=== PATIENT | male | born 1995 | race Caucasian/White ===

== ENCOUNTER 2018-05-23 18:28 | Emergency (ER) | payer OTHER ==
--- NOTE | 2018-05-23 19:48 | ED ---
HPI Chest Pain - HPI Summary HPI Summary: This patient is a 22 year old M presenting to ED with a chief complaint of left upper sided CP since 2 days ago. He has hx of mitral valve prolapse but he reports that recently the pain has been lasting longer than usual. The CC is described as intermittent sharp CP lasting about 0.5-1 hour. The patient rates the pain 2/10 in severity. Symptoms aggravated by deep breaths and exercise including biking and some weight lifting. Symptoms alleviated by nothing. Patient reports light-headedness. Patient denies SOB, abdominal pain, neck pain , and difficulty walking. - History of Current Complaint Chief Complaint: EDChestPainROMI Time Seen by Provider: 05/23/18 19:34 Hx Obtained From: Patient Onset/Duration: Started Days Ago - 2 days ago, Still Present Timing: Intermittent, Lasting Hours - 0.5-1 hour Current Severity: None Pain Intensity: 2 Pain Scale Used: 0-10 Numeric Chest Pain Location: Discrete at: - left upper sided Chest Pain Radiates: No Character: Sharp/Stabbing Aggravating Factor(s): Exertion - exercise including biking and some weight lifting, Deep Breaths Alleviating Factor(s): Nothing Associated Signs and Symptoms: Positive: Chest Pain, Lightheadedness, Other:. Negative: Shortness of Breath - Patient denies abdominal pain, neck pain, and difficulty walking. - Allergy/Home Medications Allergies/Adverse Reactions: Allergies Allergy/AdvReac Type Severity Reaction Status Date / Time No Known Allergies Allergy Verified 05/23/18 18:58 PMH/Surg Hx/FS Hx/Imm Hx Endocrine/Hematology History: Denies: Hx Diabetes Cardiovascular History: Reports: Other Cardiovascular Problems/Disorders - mitral valve prolapse Infectious Disease History: No Infectious Disease History: Denies: Traveled Outside the [place] in Last 30 Days - Family History Known Family History: Negative: Cardiac Disease, Hypertension, Diabetes - Social History Occupation: Student Alcohol Use: None Hx Substance Use: No Hx Tobacco Use: No Review of Systems Positive: Chest Pain Negative: Shortness Of Breath Negative: Abdominal Pain Positive: Other - denies neck pain and difficulty walking Neurological: Other - light-headedness All Other Systems Reviewed And Are Negative: Yes Physical Exam - Summary Physical Exam Summary: Appearance: Well-appearing, Well-nourished, lying in bed comfortably. Slender, long neck and long fingers, marfanoid habits, but was genetically tested for marfan disease and is negative for the disease. Skin: Warm, dry, no obvious rash Eyes: sclera anicteric, no conjunctival pallor ENT: mucous membranes moist, pharynx appears normal Neck: Supple, nontender Respiratory: Clear to auscultation, no signs of respiratory distress Cardiovascular: Normal S1, S2. No murmurs. Normal distal pulses in tibial and radial bilaterally. Normal chest wall. No pectus deformity. Peripheral pulses are normal. Abdomen: Soft, nontender, normal active bowel sounds present Musculoskeletal: Normal, Strength/ROM Intact Neurological: A&Ox3, awake and alert, mentation is normal, speech is fluent and appropriate Psychiatric: affect is normal, does not appear anxious or depressed Triage Information Reviewed: Yes Vital Signs On Initial Exam: Initial Vitals Temp Pulse Resp BP Pulse Ox 98.5 F 80 16 134/94 97 05/23/18 18:55 05/23/18 18:55 05/23/18 18:55 05/23/18 18:55 05/23/18 18:55 Vital Signs Reviewed: Yes Diagnostics - Vital Signs Vital Signs Temp Pulse Resp BP Pulse Ox 05/23/18 18:55 98.5 F 80 16 134/94 97 - Laboratory Result Diagrams: 05/23/18 20:20 05/23/18 20:20 Lab Statement: Any lab studies that have been ordered have been reviewed, and results considered in the medical decision making process. - Radiology CXR Radiology Interpretation Completed By: ED Physician Summary of Radiographic Findings: No acute processes. Pending radiologist official interpretation. - EKG 1902 Cardiac Rate: NL - 70 BPM - Additional Comments Diagnostic Additional Comments: Subtle ST elevation consistent with pericarditis or early polarization but not a STEMI. Re-Evaluation - Re-Evaluation First Eval Re-Evaluation Time: 23:05 Change: Improved Comment: The patient feels better and he will be discharged. Patient understands and agrees. Chest Pain Course/Dx - Course Assessment/Plan: This patient is a 22 year old M presenting to ED with a chief complaint of left upper sided CP since 2 days ago. He has hx of mitral valve prolapse but he reports that recently the pain has been lasting longer than usual. CXR reveals no acute processes. Pending radiologist official interpretation. The patient feels better in the ED. He will be discharged with dx of CP. Patient understands and agrees. - Chest Pain Differential Diagnosis/HQI/PQRI: Other: - chest pain - Diagnoses Provider Diagnoses: Chest pain Discharge - Sign-Out/Discharge Documenting (check all that apply): Patient Departure - discharge - Discharge Plan Condition: Good Disposition: HOME Prescriptions: Indomethacin CAP* [Indocin CAP*] 25 mg PO TID PRN #20 cap PRN Reason: Pain - Chest Patient Education Materials: Chest Pain (ED) Referrals: [facility] @ [Outside] - 2 Days (if not improving) - Billing Disposition and Condition Condition: GOOD Disposition: Home - Attestation Statements Document Initiated by Scribe: Yes Documenting Scribe: Jamil Gordon Provider For Whom [place] is Documenting (Include Credential): Aubrey Tyler MD Scribe Attestation: Jamil Rodriguez scribed for Aubrey Tyler MD on 05/24/18 at 0643. Scribe Documentation Reviewed: Yes Provider Attestation: The documentation as recorded by the Jamil barr accurately reflects the service I personally performed and the decisions made by Aubrey alas MD Status of Scribe Document: Viewed
[2018-05-23 20:27] LABS: ABS Basophils 0 10^3/ul (0-0.2); ABS Eosinophils 0 10^3/ul (0-0.6); ABS Lymphocytes 2.1 10^3/ul (1.0-4.8); ABS Monocytes 0.6 10^3/ul (0-0.8); ABS Neutrophils 4.6 10^3/ul (1.5-7.7); ABS Nucleated RBC 0 10^3/ul; Eosinophil % 0.5 %; Hematocrit 46 % (42-52); Hemoglobin 15.7 g/dl (14.0-18.0); Lymphocyte % 28.2 %; Mean Corpuscular HGB Conc 34 g/dl (31-36); Mean Corpuscular Hemoglobin 31 pg (27-31); Mean Corpuscular Volume 89 fL (80-94); Mean Platelet Volume 8.3 fL (7.4-10.4); Nucleated Red Blood Cells % 0.1; Platelet Count 229 10^3/ul (150-450); Red Blood Count 5.13 10^6/ul (4.00-5.40); Red Cell Distribution Width 13 % (10.5-15); White Blood Count 7.3 10^3/ul (3.5-10.8)
[2018-05-23 20:47] LABS: ALT 13 U/L (7-52); AST 16 U/L (13-39); Albumin 4.9 g/dL (3.2-5.2); Albumin/Globulin Ratio 2.1 (1-3); Alkaline Phosphatase 68 U/L (34-104); Anion Gap 5 mmol/L (2-11); Blood Urea Nitrogen 7 mg/dL (6-24); C Reactive Protein < 1.00 mg/L (<8.01); CO2 Carbon Dioxide 29 mmol/L (22-32); Calcium 9.6 mg/dL (8.6-10.3); Chloride 104 mmol/L (101-111); EGFR African American 135.4 (>60); EGFR Non-African American 111.9 (>60); Globulin 2.3 g/dL (2-4); Glucose 92 mg/dL (70-100); Potassium 3.6 mmol/L (3.5-5.0); Sodium 138 mmol/L (135-145); Total Protein 7.2 g/dL (6.4-8.9)
[2018-05-23 21:20] LABS: Erythrocyte Sed Rate 4 mm/Hr (0-14)
[2018-05-23] MEDS ORDERED: Indomethacin CAP* 25 MG CAP PO ONE (23:05)
[2018-05-23 23:33] VITALS: BP 127/78
== END 2018-05-23 23:25 | disposition home or self-care (01) ==
LOC: ED 18:28
DX: R07.9 Chest pain, unspecified (principal); R42 Dizziness and giddiness
CPT/HCPCS: 36415; 71046; 80053; 84484; 85025; 85379; 85652; 86140; 93005; 99283

== ENCOUNTER → 2018-05-30 14:02 | Emergency (ER) | payer OTHER ==
[~2018-05-30 14:02] MED LIST: Iohexol 350* (CONTRAST) 500 ML MDV IV ONE; Ketorolac INJ* 30 MG/ML 1 ML VIAL IV PUSH ONE
[2018-05-30 15:39] LABS: ABS Basophils 0 10^3/ul (0-0.2); ABS Eosinophils 0.1 10^3/ul (0-0.6); ABS Lymphocytes 1.9 10^3/ul (1.0-4.8); ABS Monocytes 0.6 10^3/ul (0-0.8); ABS Neutrophils 3.8 10^3/ul (1.5-7.7); ABS Nucleated RBC 0 10^3/ul; Hematocrit 46 % (42-52); Hemoglobin 16.1 g/dl (14.0-18.0); Lymphocyte % 29.8 %; Mean Corpuscular HGB Conc 35 g/dl (31-36); Mean Corpuscular Hemoglobin 31 pg (27-31); Mean Corpuscular Volume 89 fL (80-94); Mean Platelet Volume 8.6 fL (7.4-10.4); Nucleated Red Blood Cells % 0.1; Platelet Count 209 10^3/ul (150-450); Red Blood Count 5.21 10^6/ul (4.00-5.40); Red Cell Distribution Width 13 % (10.5-15); White Blood Count 6.4 10^3/ul (3.5-10.8)
--- NOTE | 2018-05-30 15:53 | ED ---
HPI Chest Pain - HPI Summary HPI Summary: A 22 y/o male presents to [facility] with a chief complaint of mild chest pain since 05/23/18. The patient reports that on 05/23/18 he went to urgent care and had an abnormal EKG. He reports that he then went to the ED and had a CXR that was done but was negative. He was given indomethacin and discharged. However, the patient reports that his pain is still present. He rates his pain as a 2/10 in severity. He also c/o general lightheadedness and SOB. He describes his CP as it is like someone is sitting on his chest. His pain is alleviated when leaning forward and light exercise aggravates his pain. He denies fever, chills , erythema (eyes), sore throat, cough, abdominal pain, vomiting, nausea, dysuria , hematuria, myalgia, edema, rash and dizziness. He denies a FHx of blood clots in the legs or cardiac disease. He denies smoking or EtOH use. - History of Current Complaint Hx Obtained From: Patient Onset/Duration: Started Days Ago, Still Present Timing: Constant, Lasting Days Initial Severity: Mild Current Severity: Mild Pain Intensity: 2 Pain Scale Used: 0-10 Numeric Chest Pain Location: Diffuse Chest Pain Radiates: No Character: Other: - like someone is sitting on his chest Aggravating Factor(s): Exertion Alleviating Factor(s): Other: - leaning forward Associated Signs and Symptoms: Positive: Shortness of Breath, Lightheadedness. Negative: Dizziness, Swelling, Fever, Chills, Nausea, Cough, Edema - Allergy/Home Medications Allergies/Adverse Reactions: Allergies Allergy/AdvReac Type Severity Reaction Status Date / Time No Known Allergies Allergy Verified 05/23/18 18:58 PMH/Surg Hx/FS Hx/Imm Hx Endocrine/Hematology History: Denies: Hx Diabetes Cardiovascular History: Reports: Other Cardiovascular Problems/Disorders - mitral valve prolapse Infectious Disease History: Denies: Traveled Outside the [place] in Last 30 Days - Family History Known Family History: Negative: Cardiac Disease, Hypertension, Diabetes - Social History Alcohol Use: None Hx Substance Use: No Substance Use Type: Reports: None Hx Tobacco Use: No Smoking Status (MU): Never Smoked Tobacco Review of Systems Negative: Fever, Chills Negative: Erythema Negative: Sore Throat Positive: Chest Pain Positive: Shortness Of Breath. Negative: Cough Negative: Abdominal Pain, Vomiting, Nausea Negative: dysuria, hematuria Negative: Myalgia, Edema Negative: Rash Neurological: Negative - dizziness, Other - Positive: lightheadedness All Other Systems Reviewed And Are Negative: Yes Physical Exam - Summary Physical Exam Summary: Constitutional: Well-developed, Well-nourished, Alert. (-) Distressed Skin: Warm, Dry HENT: Normocephalic; Atraumatic Eyes: Conjunctiva normal Neck: Musculoskeletal ROM normal neck. (-) JVD, (-) Stridor, (-) Tracheal deviation Cardio: Rhythm regular, rate normal, Heart sounds normal; Intact distal pulses; The pedal pulses are 2+ and symmetric. Radial pulses are 2+ and symmetric. (-) Murmur Pulmonary/Chest wall: Pain seems to be better when leaning forward. Effort normal. (-) Respiratory distress, (-) Wheezes, (-) Rales Abd: Soft, (-) epigastric tenderness, (-) Distension, (-) Guarding, (-) Rebound Musculoskeletal: (-) Edema Lymph: (-) Cervical adenopathy Neuro: Alert, Oriented x3 Psych: Mood and affect Normal Triage Information Reviewed: Yes Vital Signs Reviewed: Yes Diagnostics - Laboratory Lab Results: Lab Results 05/30/18 Range/Units 15:26 WBC 6.4 (3.5-10.8) 10^3/ul RBC 5.21 (4.00-5.40) 10^6/ul Hgb 16.1 (14.0-18.0) g/dl Hct 46 (42-52) % MCV 89 (80-94) fL MCH 31 (27-31) pg MCHC 35 (31-36) g/dl RDW 13 (10.5-15) % Plt Count 209 (150-450) 10^3/ul MPV 8.6 (7.4-10.4) fL Neut % (Auto) 59.0 % Lymph % (Auto) 29.8 % [place] % (Auto) 9.5 % Eos % (Auto) 1.0 % Baso % (Auto) 0.7 % Absolute Neuts (auto) 3.8 (1.5-7.7) 10^3/ul Absolute Lymphs (auto) 1.9 (1.0-4.8) 10^3/ul Absolute Monos (auto) 0.6 (0-0.8) 10^3/ul Absolute Eos (auto) 0.1 (0-0.6) 10^3/ul Absolute Basos (auto) 0 (0-0.2) 10^3/ul Absolute Nucleated RBC 0 10^3/ul Nucleated RBC % 0.1 Result Diagrams: 05/30/18 15:26 05/30/18 15:26 Lab Statement: Any lab studies that have been ordered have been reviewed, and results considered in the medical decision making process. - Radiology CXR Radiology Interpretation Completed By: Radiologist Summary of Radiographic Findings: IMPRESSION: No active cardiopulmonary disease is noted. ED physician has reviewed this imaging report. - CT chest/thorax CTA CT Interpretation Completed By: Radiologist Summary of CT Findings: IMPRESSION: No definite pulmonary emboli is noted. ED physician has reviewed this imaging report. - EKG 15:23 Cardiac Rate: Bradycardia - 59 bpm EKG Rhythm: Sinus Bradycardia Summary of EKG Findings: EKG at 15:23 shows sinus bradycardia at 59 bpm, no STEMI. Re-Evaluation - Re-Evaluation First Eval Re-Evaluation Time: 19:11 Change: Unchanged Comment: Updated the patient on his results. He will be discharged and was given return to ED instructions. Chest Pain Course/Dx - Course Course Of Treatment: A 22 y/o male presents to [facility] with a chief complaint of mild chest pain since 05/23/18. The patient reports that on 05/23/18 he went to urgent care and had an abnormal EKG. The physical exam revealed that the patient 's chest pain seems to be better when leaning forward. His EKG at 15:23 shows sinus bradycardia at 59 bpm, no STEMI. In the ED course the patient was given 30mg Toradol IV and Iohexol (contrast) IV. Bloodwork is WNL. CXR was negative. Chest/thorax CTA IMPRESSION: No definite pulmonary emboli is noted. Troponin of 0.00 at 15:26 and 18:06. There are small st elevations in isolated leads. There are no global st elevations or pr elevations to definitively include pericarditis. He will switch to ibuprofen 600 mg every 6 hours and discontinue indomethacin. He was given return precautions and instructed to follow up with [facility] and cardiology. The patient will be discharged with a prescription for ibuprofen 600mg. THe patient is agreeable with this plan. - Diagnoses Provider Diagnoses: Chest pain, unspecified Discharge - Sign-Out/Discharge Documenting (check all that apply): Patient Departure - DC Patient Received Moderate/Deep Sedation with Procedure: No - Discharge Plan Condition: Stable Disposition: HOME Prescriptions: Ibuprofen TAB* [Motrin TAB* 600 MG] 600 mg PO Q6H PRN #40 tab PRN Reason: Pain Scale 6-10 Referrals: [facility] - Raymundo GIBBS [[place], APPLICATION, OTHER] - Woodrow Armas MD [Medical Doctor] - (2-3 days) Additional Instructions: Switch to ibuprofen 600 mg every 6 hours discontinue Indomethacin. Follow up with [facility] and Dr. Armas. Return to the ED if you experience any new or worsening symptoms. - Billing Disposition and Condition Condition: STABLE Disposition: Home - Attestation Statements Document Initiated by Scribe: Yes Documenting Scribe: Gregory Lee Provider For Whom Scribe is Documenting (Include Credential): Eren Willams MD Scribe Attestation: Gregory Rodriguez, scribed for Eren Willams MD on 06/03/18 at 1031. Scribe Documentation Reviewed: Yes Provider Attestation: The documentation as recorded by the Gregory barr accurately reflects the service I personally performed and the decisions made by Eren alas MD Status of Scribe Document: Viewed
[2018-05-30 16:10] LABS: ALT 13 U/L (7-52); AST 17 U/L (13-39); Albumin/Globulin Ratio 2.2 (1-3); Alkaline Phosphatase 63 U/L (34-104); Anion Gap 6 mmol/L (2-11); BUN/Creatinine Ratio 9.7 (8-20); Blood Urea Nitrogen 9 mg/dL (6-24); C Reactive Protein < 1.00 mg/L (<8.01); CO2 Carbon Dioxide 29 mmol/L (22-32); Calcium 9.8 mg/dL (8.6-10.3); Chloride 105 mmol/L (101-111); EGFR African American 125.3 (>60); EGFR Non-African American 103.6 (>60); Globulin 2.3 g/dL (2-4); Glucose 95 mg/dL (70-100); Potassium 4.1 mmol/L (3.5-5.0); Sodium 140 mmol/L (135-145); Total Protein 7.3 g/dL (6.4-8.9)
[2018-05-30 19:44] VITALS: BP 103/74
== END | disposition home or self-care (01) ==
LOC: ED 14:02
DX: R07.89 Other chest pain (principal); R06.02 Shortness of breath; R42 Dizziness and giddiness; R00.1 Bradycardia, unspecified
CPT/HCPCS: 36415; 71046; 71275; 80053; 83605; 84484; 85025; 86140; 93005; 96374; 99212; 99282; G0463; J1885; Q9967